=== PATIENT | male | born 1965 | race Caucasian/White ===

== ENCOUNTER 2016-06-02 03:33 | Emergency (ER) | payer BC, MEDICAID ==
[~2016-06-02 03:33] MED LIST: ARIP300S IM; ARIP5TAB6 PO; CLON-365 PO; CLON0.5T PO; GABA300C10 PO; TERA5CAP3 PO
== END 2016-06-02 03:50 | disposition left against medical advice (07) ==
LOC: ED 03:46
DX: F10.129 Alcohol abuse with intoxication, unspecified (principal); Z53.21 Procedure and treatment not carried out due to patient leaving prior to being seen by health care provider

== ENCOUNTER 2016-08-15 22:43 | Emergency (ER) | payer BC, MEDICAID ==
[~2016-08-15] VITALS: Ht 175.3 cm; Wt 65.0 kg
[2016-08-15 22:45] VITALS: BP 122/81
[2016-08-15 23:05] LABS: DAU SCREEN DISCLAIMER
== END 2016-08-15 23:54 | disposition left against medical advice (07) ==
LOC: ED 23:47
DX: F15.10 Other stimulant abuse, uncomplicated (principal); F10.129 Alcohol abuse with intoxication, unspecified; F17.210 Nicotine dependence, cigarettes, uncomplicated; F25.9 Schizoaffective disorder, unspecified; F31.9 Bipolar disorder, unspecified
CPT/HCPCS: 80307; 99283

== ENCOUNTER 2016-08-28 01:21 | Emergency (ER) | payer BC, MEDICAID ==
[~2016-08-28] VITALS: Ht 175.3 cm; Wt 69.2 kg
[2016-08-28 01:24] VITALS: BP 146/100
== END 2016-08-28 02:28 ==
LOC: ED 01:25
DX: R52 Pain, unspecified (principal); Z53.21 Procedure and treatment not carried out due to patient leaving prior to being seen by health care provider